=== PATIENT | female | born 1980 | race American Indian/Alaskan Native ===

== ENCOUNTER 2017-11-06 06:22 | Emergency (ER) | payer OTHER ==
[2017-11-06 09:47] LABS: Hematocrit 35.8 % (30.3-42.9); Hemoglobin 11.7 gm/dl (10.1-14.3); Mean Corpuscular HGB Conc 33 % (30-34); Mean Corpuscular Hemoglobin 31 pg (28-32); Mean Corpuscular Volume 95 fl (79-97); Platelet Count 222 K/mm3 (140-440); Red Blood Count 3.79 M/mm3 (3.65-5.03); Red Cell Distribution Width 17.7 % (13.2-15.2)
[2017-11-06] MEDS ORDERED: NORCO 5/325 PO ONE (10:32)
[2017-11-06] MEDS ORDERED: ZOFRAN IV ONE (10:32)
[2017-11-06] MEDS ORDERED: NACL 0.9% 1000 ML 1,000 ML IV ONE (10:32)
[2017-11-06 11:16] LABS: Anisocytosis 1+; Basophils % (Manual) 0 % (0.0-1.8); Eosinophils % (Manual) 0 % (0.0-4.3); Platelet Estimate Cons; Total Cells Counted 100
[2017-11-06 11:22] LABS: Alanine Aminotransferase 52 units/L (7-56); Albumin 4.1 g/dL (3.9-5); BUN/Creatinine Ratio 10; Blood Urea Nitrogen 5 mg/dL (7-17); Calcium 8.5 mg/dL (8.4-10.2); Hemolysis Index 18; Lipase 20 units/L (13-60)
--- NOTE | 2017-11-06 11:49 | XRay Report ---
LEFT HUMERUS: History: Left arm pain. 2 views of the humerus demonstrate normal mineralization and contours for this patient's age. No destructive changes are noted and the adjacent soft tissues are normal. IMPRESSION: Unremarkable left humerus.
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
--- NOTE | 2017-11-06 14:05 | XRay Report ---
RIGHT KNEE, 3 views: History: Right knee pain. The bony architecture is intact without evidence of fracture or dislocation. No significant soft tissue abnormality is seen. IMPRESSION: Normal right knee.
[2017-11-06 14:07] LABS: Bilirubin,Urine NEG (Negative); Blood,Urine SM (Negative); Color,Urine Amber (Yellow); Mucus,Urine 2+ /HPF; Urobilinogen,Urine < 2.0 mg/dL (<2.0)
[2017-11-06 14:12] LABS: HCG Qualitative,Urine Negative (Negative)
--- NOTE | 2017-11-06 15:56 | Cat Scan Report ---
FINAL REPORT EXAM: CT HEAD/BRAIN WO CON HISTORY: headache COMPARISON: None. TECHNIQUE: Multiple contiguous axial images were obtained from the skullbase to the vertex without administration of IV contrast. FINDINGS: Brain volume is normal for age. No hemorrhage, mass, mass effect, or midline shift. Ventricles are not enlarged. Normal basal cisterns. No pathologic extra-axial fluid collection. No evidence of acute infarct. No skull fracture. Paranasal sinuses and mastoid air cells are clear. Bilateral orbits are grossly intact. There are comminuted fractures of the bilateral nasal bones. IMPRESSION: No acute intracranial abnormality. Comminuted fractures of bilateral nasal bones.
--- NOTE | 2017-11-06 16:02 | Cat Scan Report ---
FINAL REPORT EXAM: CT CERVICAL SPINE WO CON HISTORY: low neck pain COMPARISON: None. TECHNIQUE: Multiple contiguous axial images were obtained through the cervical spine without administration of IV contrast. Reformatted sagittal and coronal images were available for review. FINDINGS: There is no acute fracture or dislocation. There is a chronic appearing type 1 odontoid fracture with nonunion. There are hypertrophic changes of the C1-C2 articulation. C2-C3: No central or foraminal stenosis. C3-C4: No central or foraminal stenosis. C4-C5: No central or foraminal stenosis. C5-C6: Mild intervertebral disc space narrowing with anterior and uncovertebral osteophyte formation. No central or foraminal stenosis. C6-C7: Mild intervertebral disc space narrowing with anterior and uncovertebral osteophyte formation. No central or foraminal stenosis. C7-T1: Intervertebral disc space narrowing with anterior and uncovertebral osteophyte formation. No central or foraminal stenosis. The paravertebral soft tissues are normal. The airway is patent. The lung apices are clear. 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 No acute fracture or dislocation. Mild degenerative changes of the cervical spine.
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
[2017-11-06] MEDS ORDERED: TYLENOL #3 PO ONE (16:39)
[2017-11-06 16:58] VITALS: BP 128/85
== END 2017-11-06 17:20 | disposition home or self-care (01) ==
LOC: ED 06:22
DX: S02.2XXA Fracture of nasal bones, initial encounter for closed fracture (principal); G44.319 Acute post-traumatic headache, not intractable; S40.022A Contusion of left upper arm, initial encounter; S80.211A Abrasion, right knee, initial encounter; M54.9 Dorsalgia, unspecified; M54.2 Cervicalgia; J45.909 Unspecified asthma, uncomplicated; F17.200 Nicotine dependence, unspecified, uncomplicated; F31.9 Bipolar disorder, unspecified; F43.10 Post-traumatic stress disorder, unspecified; Z88.6 Allergy status to analgesic agent; Z88.2 Allergy status to sulfonamides; Y08.89XA Assault by other specified means, initial encounter; Y93.89 Activity, other specified; Y99.8 Other external cause status; Y92.89 Other specified places as the place of occurrence of the external cause
CPT/HCPCS: 36415; 70450; 70486; 72125; 73060; 73562; 80053; 81001; 81025; 82550; 83690; 84702; 85007; 85025; 86850; 86900; 86901; 99285; J7030; J2405